=== PATIENT | female | born 1970 | race Two or more races ===

== ENCOUNTER 2018-03-22 19:27 | Day surgery (SDC) | payer SELFPAY ==
[2018-03-22 11:49] VITALS: BMI 30.7
[~2018-03-22 19:27] MED LIST: BUPIVACAINE HCL/PF 2.5 MG/ML - 30 ML VIAL IJ ONE; BUPIVACAINE LIPOSOME/PF (EXPAREL) 266 MG/20 ML VIAL ONE; DEXAMETHASONE SOD PHOSPHATE 4 MG/1 ML VIAL ONE; EPINEPHrine/PF 1 MG/1 ML (1:1,000) AMPULE ONE; ESMOLOL HCL 100,000 MCG/10 ML VIAL ONE; HEPARIN NA (PORCINE) 5,000 UNITS/ML 1ML VIAL ONE; HYDROmorphone HCL/PF 1 MG/ML AMP ONE; KETAMINE HCL 200 MG/20 ML VIAL ONE; LIDOCAINE HCL 1%, 10 MG/ML (20ML VIAL) ONE; LIDOCAINE HCL/PF 2% SDV 5ML VIAL ONE; MIDAZOLAM HCL 2 MG/2 ML SINGLE DOSE VIAL ONE; ONDANSETRON 4 MG/2 ML VIAL IVPB PRN; ONDANSETRON 4 MG/2 ML VIAL ONE; PROPOFOL 20 ML ONE; ROCURONIUM BROMIDE 50 MG/5 ML VIAL ONE; SCOPOLAMINE HYDROBROMIDE 1 PATCH PATCH.TD72 ONE; SODIUM CHLORIDE 0.9% P/F 10 ML VIAL IJ ONE; morphine SULFATE 4 MG/ML VIAL IVPUSH PRN; oxyCODONE HCL 5 MG TABLET PO PRN
[2018-03-22] MEDS ORDERED: LACTATED RINGERS SOLUTION 1,000 ML IV SCH ×2 (19:30→19:33)
--- NOTE | 2018-03-22 19:35 | OP ---
Operative Note - Note: Operative Date: 03/22/18 Pre-Operative Diagnosis: cosmetic Operation: abdominoplasty with liposuction Post-Operative Diagnosis: Same as Pre-op Surgeon: Akbar Rashid Anesthesia: General
[2018-03-22] MEDS ORDERED: oxyCODONE HCL 5 MG TABLET PO PRN (20:29)
[2018-03-22] MEDS ORDERED: MAG HYDROX/AL HYDROX/SIMETH 30 ML UNIT-DOSE CUP PO ONE (23:54)
[2018-03-23] MEDS: CEFAZOLIN 1 GM/D5W 1 GM/50 ML BAG IVPB SCH ×2 (02:00→09:46)
--- NOTE | 2018-03-23 06:25 | PN ---
Progress Note (short form) - Note Progress Note: POD 1 s/ abdominoplasty. Only complaint is one episode of "heartburn". States that she gets this occasionally since her gastric sleeve, and it happened after she received her PO meds last night. OOB ambulated to bathroom several times VSS-AF, no fever HR in the 90's Pain is well controlled Exam: no collection, all tissues viable, MOUNA's thin and functioning, no leg pain Plan: EKG, CBC, sq heparin at 8AM. will obs until afternoon.
--- NOTE | 2018-03-23 07:21 | OP ---
DATE OF OPERATION: 03/22/2018 TITLE OF PROCEDURE: Abdominoplasty with bilateral flank liposuction. PREOPERATIVE DIAGNOSIS: Abdominal lipodystrophy. POSTOPERATIVE DIAGNOSIS: Abdominal lipodystrophy. ATTENDING SURGEON: Lucho Montgomery MD FRANCHISE FIELD CONSULTANT: There were no assistants. DESCRIPTION OF PROCEDURE: The patient was seen is in the holding area, marked wide awake and aware of all incisions and resulting scars. Risks, benefits, and alternatives to the operation were reviewed. She understood and agreed to proceed. Patient was given 5000 units of subcutaneous heparin preoperatively. She was given 2 g of Ancef preoperatively. CINDY hose and SCDs were applied in the holding area. She was then brought to the operating room, placed in the supine position. Positioning points were all carefully checked by surgical and anesthesia teams. She was prepped and draped in standard surgical fashion. Aly catheter was placed prior to the operation and removed at the end of the operation. A time-out was called. Patient, procedure, side, and sites were verified. At this point, an incision was made in the inferior pannicular crease. Dissection carried down to the level of the abdominal wall fascia. Dissection was then carried along the abdominal wall fascia to the level of the umbilicus. All perorating blood vessels were ligated either with cautery or suture ligatures. Umbilicus was then circumcised and developed on a fibrofatty stalk to the muscular base. Dissection was then continued in the midline to the xiphoid process and bilaterally to the costal margins. At this point, a midline plication was then performed using a series of buried figure-of-8 No. 1 Prolene suture followed by a running, locking Prolene suture both above and below the umbilicus leaving a wide space for the umbilicus for translocation. The undersurface of the flap was trimmed at the sub-Scarpas fat. Hemostasis was meticulously achieved. Wounds were copiously irrigated with normal saline. The patient was brought to a seated upright position at 30 degrees, where the flap is transposed and excess skin and fat were then trimmed. Hemostasis once again was achieved. The skin was tailor-tacked in position. Markings of the umbilicus were then made. A Star Trek pattern was used for translocation. The umbilicus was translocated and was inset with a series of interrupted buried deep dermal 3-0 Monocryl sutures followed by a series of interrupted and running 4-0 nylon suture. Size 19 round drains were placed, one on either side of the incision and a central one in the midline. These were secured with 2-0 silk drain sutures. The bilateral flanks were then infiltrated with wetting solution. Standard wetting solution was used, a liter of normal saline, 20 mL of 1% lidocaine plain, and 1:1000 epinephrine ampule. A total of 500 mL of this solution used, 250 in either flank. While this was setting, the closure was performed with a series of interrupted Scarpas layer 0 Vicryl buried suture, followed by a series of interrupted buried deep dermal 3-0 Monocryl sutures, prior to the final V-loc closure. Liposuction was then performed in either flank. On the right side, 250 mL of lipoaspirate was achieved. On the left side, 200 mL of lipoaspirate was achieved. Final closure was performed with a running 3-0 Monocryl V-Loc suture followed by several 4-0 nylon sutures on the skin surface. All tissues were pink and viable. There was no evidence of any collection or ischemia. A dressing was applied with Steri-Strips, ABD gauze, Xeroform within the umbilicus, and a compressive abdominal binder. Drains placed to bulb suction. Patient was transferred in a flexed position to the hospital bed, awoken from anesthesia, transferred to recovery without complications. LUCHO MONTGOMERY M.D. [id number]
[2018-03-23] MEDS ORDERED: HEPARIN NA (PORCINE) 5,000 UNITS/ML 1ML VIAL SQ SCH (08:00)
[2018-03-23 08:21] LABS: HEMATOCRIT 31.9 % (32.4-45.2); HEMOGLOBIN 10.4 GM/dl (10.7-15.3); MCH 26.8 pg (25.7-33.7); MCHC 32.5 g/dl (32.0-36.0); MEAN CELL VOLUME 82.5 fl (80-96); MEAN PLT VOLUME 7.4 fl (7.5-11.1); PLATELET COUNT 258 K/MM3 (134-434); RBC 3.87 M/mm3 (3.60-5.2); RDW 12.7 % (11.6-15.6); WHITE BLOOD COUNT 16.7 K/mm3 (4.0-10.8)
--- NOTE | 2018-03-23 09:39 | PN ---
Progress Note (short form) - Note Progress Note: ANESTHESIA POSTOP 47 yo female POD#1 s/p abdominoplasty under GA. Patient doing well. Pain adequately controlled. Tolerating PO. VSS Encouraged IS use and ambulation. Continue current care
[2018-03-23 10:35] VITALS: BP 182/77; TEMP 99.1
[2018-03-23 14:37] VITALS: PULSE 74
== END 2018-03-23 16:41 | disposition home or self-care (01) ==
LOC: FASU 19:27 → FM/S 19:27 → FASU 03-23 16:41
PROVIDERS: ATTEND Plastic Surgery
PROC: 0J083ZZ Alteration of Abdomen Subcutaneous Tissue and Fascia, Percutaneous Approach (ICD-10-PCS; 2018-03-22)
PROC: 0J080ZZ Alteration of Abdomen Subcutaneous Tissue and Fascia, Open Approach (ICD-10-PCS; principal; 2018-03-22 13:44)
DX: Z41.1 Encounter for cosmetic surgery (principal)
CPT/HCPCS: 36415; 84484; 84703; 85027; 86850; 86900; 86901; 94760; J1644

== ENCOUNTER 2021-12-08 19:21 | Emergency (ER) | payer BC ==
[2021-12-08 19:41] VITALS: BP 127/80; PULSE 90; TEMP 97.8; BMI 35.9
[2021-12-08] MEDS ORDERED: ONDANSETRON 4 MG/2 ML VIAL IVPUSH ONE (20:26)
[2021-12-08] MEDS ORDERED: FAMOTIDINE 20 MG/50 ML IVPB 20 MG/50 ML MG IVPB ONE (20:26)
[2021-12-08] MEDS ORDERED: KETOROLAC TROMETHAMINE 30 MG/1 ML VIAL IVPUSH ONE (20:26)
[2021-12-08] MEDS ORDERED: SODIUM CHLORIDE 0.9% 500 ML INFUS.BAG IV ONE (20:29)
[2021-12-08] MEDS ORDERED: ONDANSETRON 4 MG/2 ML VIAL ONE (20:34)
[2021-12-08] MEDS ORDERED: KETOROLAC TROMETHAMINE 30 MG/1 ML VIAL ONE (20:34)
[2021-12-08] MEDS ORDERED: FAMOTIDINE 10 MG/ML VIAL IVPB ONE (20:34)
[2021-12-08 21:45] LABS: BASO % 0.2 % (0-2.0); EOS % 0.1 % (0-4.5); HEMATOCRIT 40.2 % (32.4-45.2); HEMOGLOBIN 13.3 GM/dL (10.7-15.3); LYMPH % 6.6 % (8-40); MCH 27.4 pg (25.7-33.7); MCHC 33.1 g/dl (32.0-36.0); MEAN CELL VOLUME 82.8 fl (80-96); MEAN PLT VOLUME 7.8 fl (7.5-11.1); MONO % 2.4 % (3.8-10.2); NEUT % 90.7 % (42.8-82.8); PLATELET COUNT 345 10^3/uL (134-434); RBC 4.85 M/mm3 (3.60-5.2); RDW 13.5 % (11.6-15.6); WHITE BLOOD COUNT 14.7 K/mm3 (4.0-10.0)
[2021-12-08 22:00] LABS: ALBUMIN 3.6 g/dl (3.4-5.0); BLOOD UREA NITROGEN 10.4 mg/dL (7-18); CALCIUM 9.2 mg/dL (8.5-10.1)
[2021-12-08 22:02] LABS: CREATININE 0.6 mg/dL (0.55-1.3)
[2021-12-08 22:05] LABS: BILIRUBIN,TOTAL 0.6 mg/dL (0.2-1); TOT PROT 8.3 g/dl (6.4-8.2)
[2021-12-08 22:46] LABS: EPI CELLS >36 /uL (0-25.1); HYALINE CASTS 13 /uL (0-3.1); PH,URINE 5.5 (5.0-8.0); URINE APPEARANCE TURBID; URINE BACTERIA 326 /uL (0-1359); URINE BILIRUBIN NEGATIVE (NEGATIVE); URINE COLOR YELLOW; URINE GLUCOSE (UA) NEGATIVE (NEGATIVE); URINE KETONE 2+ (NEGATIVE); URINE LEUK ESTERASE 1+ (NEGATIVE); URINE NITRITE NEGATIVE (NEGATIVE); URINE PROTEIN TRACE (NEGATIVE); URINE UROBILINOGEN 0.2 mg/dL (0.2-1.0); URINE WBC 96 /uL (0-25.8)
[2021-12-08 23:00] LABS: URINE RBC 90.8 /uL (0-23.9)
== END 2021-12-09 00:43 | disposition home or self-care (01) ==
LOC: JER 19:21
PROC: 3E033GC Introduction of Other Therapeutic Substance into Peripheral Vein, Percutaneous Approach (ICD-10-PCS; principal; 2021-12-08)
PROC: 3E0333Z Introduction of Anti-inflammatory into Peripheral Vein, Percutaneous Approach (ICD-10-PCS; 2021-12-08)
PROC: 3E033GC Introduction of Other Therapeutic Substance into Peripheral Vein, Percutaneous Approach (ICD-10-PCS; 2021-12-08)
DX: R10.9 Unspecified abdominal pain (principal)
CPT/HCPCS: 36415; 74177-TC; 80053; 81003; 84484; 85025; 86850; 86900; 86901; 87086; 93005; 93010; 99285-25; Q9967

== ENCOUNTER 2024-09-22 04:17 | Day surgery (SDC) | payer BC ==
[2024-09-20 11:59] VITALS: BMI 34.3
[2024-09-22] MEDS ORDERED: LIDOCAINE HCL/PF 1% SDV 5ML VIAL ONE (07:25)
[2024-09-22] MEDS ORDERED: BUPIVACAINE HCL/PF 0.75% 10 ML VIAL ONE (07:25)
[2024-09-22] MEDS ORDERED: ACETAMINOPHEN 500 MG TABLET (FP) PO PRN (09:02)
[2024-09-22 11:54] VITALS: RESP 20
[2024-09-22] MEDS: LIDOCAINE HCL 1% PRESERVATIVE FREE - 30ML VIAL IJ ONE ×2 (13:17)
[2024-09-22] MEDS: BUPIVACAINE HCL/PF 0.75% 10 ML VIAL NR ONE ×3 (13:17→13:19)
[2024-09-22 14:52] VITALS: BP 122/70; PULSE 70; TEMP 98
== END 2024-09-22 14:00 | disposition home or self-care (01) ==
LOC: JASU-SURG 04:17
PROVIDERS: ATTEND Pain Medicine Pain Medicine
PROC: 3E0T33Z Introduction of Anti-inflammatory into Peripheral Nerves and Plexi, Percutaneous Approach (ICD-10-PCS; 2024-09-22)
PROC: 3E0T3BZ Introduction of Anesthetic Agent into Peripheral Nerves and Plexi, Percutaneous Approach (ICD-10-PCS; principal; 2024-09-22 13:45)
DX: M47.816 Spondylosis without myelopathy or radiculopathy, lumbar region (principal)
CPT/HCPCS: 76000-TC-FY